=== PATIENT | female | born 1975 | race American Indian/Alaskan Native ===

== ENCOUNTER 2016-12-09 08:21 | Day surgery (SDC) | payer BC, MEDICAID ==
[2016-12-08 16:22] LABS: Hematocrit 20.3 % (30.3-42.9)
[2016-12-08 16:31] LABS: Hemoglobin 5.7 gm/dl (10.1-14.3)
[2016-12-09] MEDS ORDERED: NACL 0.9% 250ML 250 ML IV ONE (08:57)
[2016-12-09] MEDS ORDERED: TYLENOL PO ONE (08:58)
[2016-12-09 13:25] VITALS: BP 120/80
== END 2016-12-09 14:00 | disposition home or self-care (01) ==
LOC: OPU 08:21 → EDSTATUS 09:30 → OPU 14:00
PROVIDERS: ATTEND Internal Medicine Hematology & Oncology
DX: D64.9 Anemia, unspecified (principal)
CPT/HCPCS: 36415; 36430; 85014; 85018; 86850; 86900; 86901; 86920; J7050; P9016